=== PATIENT | male | born 1970 | race Caucasian/White ===

== ENCOUNTER → 2019-09-20 09:10 | Outpatient (BNVA) | payer OTHER, SELFPAY | PROVIDERS: Family Provider Family Medicine; PCP Family Medicine; Visit Provider Otolaryngology | DX: J32.9 Chronic sinusitis, unspecified (principal); J34.2 Deviated nasal septum; R13.10 Dysphagia, unspecified; K21.9 Gastro-esophageal reflux disease without esophagitis | CPT/HCPCS: 31575; 99214 ==

== ENCOUNTER 2019-09-27 08:00 | Outpatient (CLI) | payer OTHER, SELFPAY ==
--- NOTE | 2019-09-27 08:00 | CT_ITS ---
WS: [id number] CT PARANASAL SINUSES HISTORY: Chronic sinusitis TECHNIQUE: Contiguous 2.5 mm axial images obtained through the sinuses. Images are reconstructed in s agittal and coronal planes. All CT scans at [facility] use at least one of these dose opt imization techniques: automated exposure control; mA and/or kV adjustment per patient size (includes targeted exams where dose is matched to clinical indication); or iterative reconstruction. DLP: 392.32 mGycm COMPARISON: None available. Frontal sinuses: Poorly opacified and hypoplastic RIGHT frontal sinus. LEFT frontal sinus is small bu t better aerated. No disease. Sphenoid sinus: Small amount mucoperiosteal thickening or mucous retention cyst in the anterior LEFT sphenoid sinus which extends into the posterior LEFT ethmoid air cell. No air-fluid levels. Ethmoid sinuses: Anterior ethmoid air cells are clear. There is mild mucoperiosteal thickening in the posterior LEFT ethmoid air cells, contiguous with the LEFT sphenoid sinus. Minimal thickening. Maxillary sinus: Bilateral mucous retention cysts in the floors of the maxillary sinus. The largest c yst on the LEFT measuring 2.1 x 1.4 cm. No bony expansion. Ostiomeatal unit: Soft tissue thickening involving the uncinate processes bilaterally and the adjacen t ethmoid bulla. Slightly greater soft tissue thickening on the RIGHT. Most significant disease invol ves the RIGHT hiatus semilunaris and maxillary infundibulum. There is soft tissue briefly contacting and narrowing the infundibulum on the RIGHT. Deviation of the nasal septum to the LEFT with a 3 mm bony spur. Spur briefly contacts the LEFT infer ior turbinate. Visualized orbits and globes are normal. CT/CT sinus wo con* [id number] IMPRESSION: 1. Minimal obstruction of the RIGHT ostiomeatal unit moderate narrowing of the LEFT ostiomeatal unit. 2. Small mucous retention cyst in the floors of the maxillary sinus. 3. No air-fluid levels. 4. Slight deviation of the nasal septum to the LEFT with 3 mm bony spur.
== END 2019-09-27 08:01 | disposition home or self-care (01) ==
LOC: RADWPI 08:07
PROVIDERS: Family Provider Family Medicine; PCP Family Medicine; Visit Provider Otolaryngology
DX: J32.9 Chronic sinusitis, unspecified (principal); J34.89 Other specified disorders of nose and nasal sinuses; J34.2 Deviated nasal septum
CPT/HCPCS: 70486

== ENCOUNTER → 2019-10-04 09:18 | Outpatient (BNVA) | payer OTHER, SELFPAY | PROVIDERS: Family Provider Family Medicine; PCP Family Medicine; Visit Provider Otolaryngology | DX: J32.9 Chronic sinusitis, unspecified (principal); R13.10 Dysphagia, unspecified; K21.9 Gastro-esophageal reflux disease without esophagitis; J34.2 Deviated nasal septum | CPT/HCPCS: 99213; 99214 ==

== ENCOUNTER → 2019-10-10 14:00 | Outpatient (BNVA) | payer OTHER, SELFPAY | PROVIDERS: Family Provider Family Medicine; PCP Family Medicine; Visit Provider Internal Medicine | DX: B18.2 Chronic viral hepatitis C (principal); R76.8 Other specified abnormal immunological findings in serum | CPT/HCPCS: 80053; 85025 ==

== ENCOUNTER → 2019-10-25 08:24 | Outpatient (BNVA) | payer OTHER, SELFPAY | PROVIDERS: Family Provider Family Medicine; PCP Family Medicine; Visit Provider Otolaryngology | DX: J32.9 Chronic sinusitis, unspecified (principal); J34.2 Deviated nasal septum; R13.10 Dysphagia, unspecified; K21.9 Gastro-esophageal reflux disease without esophagitis | CPT/HCPCS: 96372; 99214; J3301 ==

== ENCOUNTER 2020-06-08 10:50 | Emergency (ER) | payer OTHER, SELFPAY ==
[2020-06-08 10:51] VITALS: BP 162/110; PULSE 94; RESP 15; TEMP 36.6; O2SAT 96; BMI 37.6
--- NOTE | 2020-06-08 11:04 | W.ED.ALLEREA ---
HPI - Allergic Reaction General: Chief complaint: Allergic Reaction Stated complaint: ALLERGIC REACTION Time Seen by Provider: 06/08/20 10:52 Source: patient and EMS Mode of arrival: EMS Limitations: no limitations History of Present Illness: HPI narrative: 50-year-old male who presents here with allergic reaction. He is in allergy clinic today was getting allergen testing. Patient states he started to have a reaction and had hives along with some difficulty breathing. Patient was given 2 EpiPen's and Benadryl there. Patient states he feels much improved currently and no longer has a rash and has no shortness of breath. Denies any worsening factors. Associated symptoms: Deny abdominal pain, nausea or vomiting Review of Systems Const: Denies: fever(s), chills, body aches or change in appetite Eyes: Denies: blurry vision or eye discomfort ENMT: Denies: throat pain or dental pain Card: Denies: chest pain Resp: Denies: dyspnea GI: Denies: abdominal pain, nausea, vomiting or diarrhea : Denies: dysuria Musc: Denies: neck pain or back pain Skin/Breast: Denies: rash Neuro: Denies: headache(s) Psych: Denies: depression German/Lymph: Denies: easy bruising All/Imm: Denies: urticaria PFSH ED PFSH: Medical History Chronic sinusitis Deviated septum GERD (gastroesophageal reflux disease) Family History Other Hodgkin disease Social History Smoking and tobacco status: former smoker Quit status (tobacco): has quit using tobacco Year quit tobacco: 2014 Alcohol intake: current Alcohol intake frequency: holidays/special occasions only Alcohol type: hard liquor History of recent travel: No Physical Exam Const: COMMON NORMALS: no acute distress, patient oriented x3 and healthy appearing HENMT: COMMON NORMALS: normocephalic and atraumatic HEAD & SCALP: normocephalic and atraumatic Eye: COMMON NORMALS: Equal, round and reactive pupils present and EOMs intact bilaterally PUPIL: Yes Equal, round and reactive pupils present Neck/C-Spine: COMMON NORMALS: full ROM and supple Chest: COMMONS NORMALS: normal inspection of the chest and normal palpation of entire chest wall Resp: COMMON NORMALS: normal respiratory effort, No retractions, No use of accessory muscles and clear to auscultation bilaterally AUSCULTATION: clear to auscultation bilaterally Cardio: COMMON NORMALS: regular rate, regular rhythm and No murmurs present (Cardio) RATE: regular rate RHYTHM: regular rhythm GI: COMMON NORMALS: Normal to inspection, nondistended, normoactive bowel sounds present, Soft to palpation, non-tender and no masses PALPATION: Yes Soft to palpation Extremity: COMMON NORMALS: normal to inspection and full ROM Neuro: COMMON NORMALS: patient oriented x3, moves all extremities and no focal motor deficits Psych: COMMON NORMALS: mental status grossly normal, Normal thought process present and cooperative THOUGHT PROCESS: Normal thought process present Skin: COMMON NORMALS: no rashes or lesions noted and no wounds GENERAL SKIN EXAM: no rashes or lesions noted Course Vital Signs: Vital signs: Vital Signs Temperature 97.9 F 06/08/20 10:51 Pulse Rate 87 06/08/20 11:12 Respiratory Rate 20 H 06/08/20 11:12 Blood Pressure 162/110 06/08/20 10:51 Pulse Oximetry 96 06/08/20 11:12 MDM - Allergic Reaction MDM Narrative: Medical decision making narrative: Patient presents here with an allergic reaction from allergy clinic. Patient's well-appearing here and has been observed and his symptoms of all been resolved. He is stable for discharge and will prescribe him an EpiPen. He is to return if worsening. Discharge Plan Discharge Patient Disposition: Home Clinical Impression: Allergic reaction Qualifiers: Encounter type: initial encounter Qualified Code(s): T78.40XA - Allergy, unspecified, initial encounter Condition: Stable Prescriptions: New EpiPen Jr 0.15 mg/0.3 mL auto-injector 0.3 mg IM Q1H PRN (Reason: anaphylaxis) Qty: 2 RF: 0 No Action doxycycline hyclate 100 mg Capsule 100 mg PO DAILY RF: 0 prednisone 20 mg Tablet 20 mg PO BID RF: 0 amlodipine 5 mg Tablet 5 mg PO DAILY RF: 0 Singulair 10 mg Tablet 10 mg PO DAILY RF: 0 fluticasone propionate 50 mcg/actuation [place],Suspension 2 spray INTRANASAL DAILY RF: 0 Discharge Orders: Discharge Order (Routine); Ordered 06/08/20 Ordered By: Ruddy Bernard Referrals: Ana Maria Decker DO [Primary Care Provider] - 1-3 days Discharge Diet: Advance as tolerated Discharge Activity: Resume usual activity Patient Instructions: Allergic Reaction Discharge Date/Time: 06/08/20 12:23 Coding Level of Care Code 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
[2020-06-08 11:12] VITALS: PULSE 87; RESP 20; O2SAT 96
[2020-06-08 12:22] VITALS: BP 133/94; PULSE 103; RESP 20; TEMP 37.1; O2SAT 97
== END 2020-06-08 12:23 | disposition home or self-care (01) ==
PROVIDERS: Emergency Provider Emergency Medicine; PCP Family Medicine
DX: T78.40XA Allergy, unspecified, initial encounter (principal); Z87.891 Personal history of nicotine dependence
CPT/HCPCS: 12345; 99281

== ENCOUNTER 2020-06-26 10:58 | Outpatient (CLI) | payer OTHER, SELFPAY ==
--- NOTE | 2020-06-26 11:10 | ECG_ITS ---
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 Measurements Intervals [place] Rate: 85 P: 47 NV: 164 QRS: 38 QRSD: 98 T: 57 QT: 351 QTc: 419 Interpretive Statements SINUS RHYTHM No previous ECG available for comparison Electronically Signed On 06-26-2020 13:25:25 [employer] CLE[employer] SUPERVISOR by Lorene Fairchild M.D. [id number]
[2020-06-26 11:26] LABS: Basophils # 0.2 10^3/uL (0.0-0.1); Eosinophils # 0.3 10^3/uL (0.0-0.8); Eosinophils % 4.3 %; Hematocrit 47.8 % (42.0-52.0); Hemoglobin 15.4 g/dL (11.7-16.6); Lymphocytes # 2.5 10^3/uL (0.8-4.8); Lymphocytes % 31.8 %; Mean Corpuscular HGB Conc 32.2 g/dL (30.0-36.0); Mean Corpuscular Hemoglobin 29.8 pg (28.0-34.0); Mean Corpuscular Volume 92.5 fL (80-94); Mean Platelet Volume 11.8 fL (7.4-10.4); Monocytes # 0.6 10^3/uL (0.2-0.9); Monocytes % 7.5 %; Neutrophils # 4.24 10^3/uL (1.8-7.7); Nucleated Red Blood Cells % 0 %; Platelet Count 249 10^3/cmm (130-400); Red Blood Count 5.17 10^6/uL (4.1-5.3); Red Cell Distribution Width 12.9 % (12.1-15.1); White Blood Count 7.9 10^3/uL (4.0-10.0)
[2020-06-26 11:53] LABS: Anion Gap 10.7 (5-19); Blood Urea Nitrogen 12 mg/dL (6-20); Calcium 8.9 mg/dL (8.5-10.5); Carbon Dioxide 26 mmol/L (22-29); Chloride 106 mmol/L (98-107); Glomerular Filtration Rate 79.8 mL/min (90-130); Glucose 69 mg/dL (65-115); Osmolality Calculated 286 mOsm/kg (285-295); Potassium 3.7 mmol/L (3.5-5.1); Sodium 139 mmol/L (136-145)
== END 2020-06-26 10:59 | disposition home or self-care (01) ==
LOC: RT 10:59
PROVIDERS: PCP Family Medicine; Visit Provider Specialist
DX: J34.2 Deviated nasal septum (principal)
CPT/HCPCS: 36415; 80048; 85025; 93005

== ENCOUNTER 2020-07-08 16:45 | Emergency (ER) | payer OTHER, SELFPAY ==
[2020-07-08 16:53] VITALS: BP 157/120; PULSE 113; RESP 20; TEMP 36.7; O2SAT 97; BMI 37.9
--- NOTE | 2020-07-08 19:05 | XR_ITS ---
WS: [id number] KU, 07/08/2020 Clinical Data: pain Comparison: None. Findings: No abnormal intraabdominal masses or calcifications are seen. There is no dilatated small bowel or ev idence of obstruction. There is a large amount of fecal material throughout the ascending and transverse colon. There are cl ips in the right upper quadrant from a cholecystectomy. XR/XR KUB portable [id number] Impression: Large amount of fecal material in the descending and transverse colons.
--- NOTE | 2020-07-08 19:06 | ED_ITS ---
HPI - Nausea/Vomiting/Diarrhea General: Chief complaint: Nausea/Vomiting/Diarrhea Stated complaint: VOMITING X 2 DAYS Time Seen by Provider: 07/08/20 19:01 History of Present Illness: HPI Narrative: Patient had nasal polyp ectomy week ago now presents with nausea vomiting last couple days aching all over. Has been on high doses of hydrocodone since having that done. Denies any fever chills or other related problems MD elicited complaint: nausea and vomiting Onset (ago): day(s) Description of vomiting: food contents Associated nausea: Yes Associated abdominal pain: Yes Location of pain: Diffuse Associated symtoms: Reports nausea; Denies anxiety, change in vision, chest pain or headache(s) Review of Systems Narrative: Muscle aches Const: Denies: fever(s), chills or body aches Eyes: Denies: change in vision or blurry vision ENMT: Denies: throat pain or nasal congestion Card: Denies: chest pain or dyspnea on exertion Resp: Denies: dyspnea, productive cough or non-productive cough GI: Reports: abdominal pain, nausea and vomiting : Denies: difficulty urinating Musc: Denies: extremity pain Skin/Breast: Denies: rash Neuro: Denies: headache(s) Psych: Denies: anxiety or depression German/Lymph: Denies: easy bruising PFSH ED PFSH: Medical History Chronic sinusitis Deviated septum GERD (gastroesophageal reflux disease) Family History Other Hodgkin disease Social History Smoking and tobacco status: former smoker Quit status (tobacco): has quit using tobacco Year quit tobacco: 2014 Alcohol intake: current Alcohol intake frequency: holidays/special occasions only Alcohol type: hard liquor History of recent travel: No Physical Exam Const: COMMON NORMALS: no acute distress, average body habitus and patient oriented x3 HENMT: COMMON NORMALS: normocephalic HEAD & SCALP: normal to inspection and normocephalic FACE & SINUS: normal facial exam Eye: COMMON NORMALS: conjunctivae normal GENERAL EYE: appearance normal, both eyes and all related structures CONJUNCTIVA: Yes conjunctivae normal Neck/C-Spine: COMMON NORMALS: no JVD Chest: COMMONS NORMALS: normal inspection of the chest Resp: COMMON NORMALS: normal respiratory effort and clear to auscultation bi laterally AUSCULTATION: clear to auscultation bilaterally Cardio: COMMON NORMALS: no JVD, regular rate and regular rhythm RATE: regular rate RHYTHM: regular rhythm GI: INSPECTION: Yes normal to inspection AUSCULTATION: Yes Hypoactive bowel sounds present RECTAL EXAM: Yes deferred Extremity: COMMON NORMALS: normal to inspection and full ROM Neuro: COMMON NORMALS: patient oriented x3 Course Vital Signs: Vital signs: Vital Signs Temperature 98.0 F 07/08/20 16:53 Pulse Rate 113 H 07/08/20 16:53 Respiratory Rate 20 H 07/08/20 16:53 Blood Pressure 157/120 07/08/20 16:53 Pulse Oximetry 97 07/08/20 16:53 Discharge Plan Discharge Prescriptions: No Action ondansetron 4 mg tablet,disintegrating 4 mg PO Q6H PRN (Reason: nausea and vomiting) Qty: 20 RF: 0 amlodipine 5 mg Tablet 5 mg PO DAILY RF: 0 fluticasone propionate 50 mcg/actuation [place],Suspension 2 spray INTRANASAL DAILY RF: 0 EpiPen Jr 0.15 mg/0.3 mL auto-injector 0.3 mg IM Q1H PRN (Reason: anaphylaxis) Qty: 2 RF: 0 Coding Level of Care Code 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
[2020-07-08] MEDS: sodium chloride 0.9% 1,000 ML 999 ML IV (20:15)
[2020-07-08] MEDS: ondansetron 2 mg/ML SDV 2 mL 4 MG IVP (20:20)
[2020-07-08 20:25] VITALS: RESP 20; O2SAT 94
[2020-07-08] MEDS: morphine 4 mg/mL SDV 1 mL IVP (20:25)
[2020-07-08 20:35] LABS: Basophils # 0.1 10^3/uL (0.0-0.1); Basophils % 0.8 %; Hematocrit 46.8 % (42.0-52.0); Hemoglobin 15.7 g/dL (11.7-16.6); Lymphocytes # 2.5 10^3/uL (0.8-4.8); Lymphocytes % 15.8 %; Mean Corpuscular HGB Conc 33.5 g/dL (30.0-36.0); Mean Corpuscular Hemoglobin 29.5 pg (28.0-34.0); Mean Corpuscular Volume 87.8 fL (80-94); Mean Platelet Volume 12.1 fL (7.4-10.4); Monocytes # 0.6 10^3/uL (0.2-0.9); Monocytes % 4.1 %; Neutrophils # 12.26 10^3/uL (1.8-7.7); Neutrophils % 78.8 %; Nucleated Red Blood Cells % 0 %; Platelet Count 309 10^3/cmm (130-400); Red Blood Count 5.33 10^6/uL (4.1-5.3); Red Cell Distribution Width 12.8 % (12.1-15.1); White Blood Count 15.5 10^3/uL (4.0-10.0)
[2020-07-08 21:03] LABS: Add Urine Microscopic? NO
[2020-07-08 21:07] LABS: Alanine Aminotransferase 52 U/L (0-41); Albumin Level 4.1 g/dL (3.5-5.2); Alkaline Phosphatase 110 IU/L (40-130); Anion Gap 15.8 (5-19); Aspartate Amino Transferase 22 U/L (0-40); Blood Urea Nitrogen 15 mg/dL (6-20); Calcium 9.1 mg/dL (8.5-10.5); Carbon Dioxide 23 mmol/L (22-29); Chloride 97 mmol/L (98-107); Globulin 3.5 g/dL (1.3-4.6); Glomerular Filtration Rate 79.8 mL/min (90-130); Glucose 126 mg/dL (65-115); Lipase 31 U/L (13-60); Osmolality Calculated 276 mOsm/kg (285-295); Potassium 3.8 mmol/L (3.5-5.1); Sodium 132 mmol/L (136-145); Total Bilirubin 0.7 mg/dL (0.15-1.2); Total Protein 7.6 g/dL (6.6-8.7)
[2020-07-08 21:31] LABS: Glucose Urine UA Norm (Normal); Ketones Urine 1+ (Negative); Protein Urine Neg (Negative); Specific Gravity, Urine 1.025 (1.005-1.030); Urine Appearance Clear (CLEAR); Urine Color Yellow (Yellow)
[2020-07-08 21:32] LABS: Bilirubin Urine Neg (Negative); Blood Urine Neg (Negative); Leukocyte Esterase Urine Negative (Negative); Nitrate Urine Negative (Negative); Urobilinogen Urine Norm (Negative)
[2020-07-08 22:03] VITALS: BP 163/85; PULSE 78; RESP 16; O2SAT 96
== END 2020-07-08 22:09 | disposition home or self-care (01) ==
PROVIDERS: Emergency Medicine; Emergency Provider Nurse Practitioner Family; PCP Nurse Practitioner
DX: R11.2 Nausea with vomiting, unspecified (principal); Z87.891 Personal history of nicotine dependence
CPT/HCPCS: 12345; 74018; 80053; 81003; 83690; 85025; 96361; 96374; 96375; 99282; 99283; J2270; J2405; J7030